=== PATIENT | female | born 1935 | race Caucasian/White ===

== ENCOUNTER → 2017-07-15 | Outpatient (CLI) | payer MEDICARE, MEDICAID ==
[~2017-07-15] MED LIST: ALBUTEROL-200 PUFFS/ IH; ASPIRIN EC81 MG PO; AZITHROMYCIN250 MG PO; BIAXIN 500MG T500 MG PO; BISOPROLOL FUMA10 MG; BISOPROLOL FUMA10 MG PO; CARVEDILOL6.25 MG PO; CEPHALEXIN250 MG PO; CIPRO 500MG TA500 MG PO; COREG 12.5 MG12.5 MG PO; COZAAR100 MG PO; DARVOCET-N6 EACH/PAK PO; DIAZEPAM5 M1; DIAZEPAM5 MG PO; DOXYCYCLINE HY100 M3 PO; DOXYCYCLINE HY100 MG PO; FEXOFENADINE60 MG PO; HYDROCHLOROTHIA25 M1; HYDROCHLOROTHIA25 M1 PO; LIDODERM 5% PA1 EACH TD; LIPITOR10 MG PO; LOSARTAN POTAS100 MG; LOSARTAN POTAS100 MG PO; LYRICA50 MG PO; MAG-OX 400400 MG PO; MAGNESIUM OXIDE; MAXZIDE 25 MG-31 TAB PO; MECLIZINE 25MG25 MG PO; MECLIZINE HYDRO25 MG; MECLIZINE HYDRO25 MG PO; MEDROL 4MG. DOSE4 MG PO; MELOXICAM15 MG PO; MIRALAX PO255 GM/BOT PO; MIRALAX17 GM/DOSE PO; NEXIUM40 MG PO; NICOTINE PATCH;14 MG TD; NITROGLYCERIN0.4 MG SL; NITROSTAT 0.4M0.4 MG; OMEPRAZOLE20 MG PO; PRAVACHOL 40MG40 MG PO; PRAVASTATIN SOD10 MG; PREVACID 15 MG15 M1; PREVACID 15 MG15 M1 PO; PREVACID 30MG C30 M1 PO; PROAIR HFA0.09 MG/AC; SEPTRA DS 800 M1 TAB PO; TESSALON PERLE200 MG PO; TRAMADOL 50MG T50 MG; TRAMADOL 50MG T50 MG PO; VICODIN 5/500 T1 TAB PO; ZITHROMAX Z-PA250 M1 PO; ZOFRAN4 MG PO; ZOVIRAX400 MG PO
--- NOTE | 2017-07-15 16:08 | RADIOLOGY REPORT PS360 ---
CT CHEST W/O CONTRAST HISTORY: Cough, follow-up lung nodules LUNG NODULES ORDERING PHYSICIAN: Kory Redman MD PATIENT AGE: 81 years TECHNIQUE: Helical acquisition obtainedwithout contrast. Axial, sagittal, and coronal reformatted images are generated and reviewed. COMPARISON: 12/24/2016 FINDINGS: No mediastinal or hilar mass or adenopathy is evident. Coronary artery calcifications are present area there is normal heart size. Previously described right-sided nodules are unchanged there is mild diffuse bronchial thickening. Patchy infiltrate is present in the right middle lobe which was not present on the previous exam. . 3 mm nodules present in the lung base medially not readily apparent on the previous study. Atelectatic changes are present in the right lung base. Previously noted cluster of small nodules in the right lower lobe is unchanged. Previously noted parenchymal opacity in the left lung base is unchanged. There are mild atelectatic changes in the medial aspect of the right middle lobe. This has developed compared to the previous exam. There is1 occlusion of the right middle lobe bronchus. Mild centrilobular emphysematous changes are present. Upper abdominal images are unremarkable. Degenerative changes are present in the thoracic spine. IMPRESSION: 1. Stable bilateral pulmonary nodules. One small new nodule is noted in the right lung base medially at 3 mm too small to characterize. 2. There is occlusion of the right middle lobe bronchus which is developed since previous exam. Study is performed without contrast and is difficult to determine of this is due to a mass/endobronchial lesion or mucous plugging. There is some calcification noted in this region. Consider bronchoscopy for further evaluation. 3. Right middle lobe infiltrate with centrilobular emphysematous change
== END ==
LOC: RAD 07-02 15:00
DX: R91.8 Other nonspecific abnormal finding of lung field (principal)